=== PATIENT | female | born 1965 | race Caucasian/White ===

== ENCOUNTER 2017-12-08 23:35 | Inpatient (IN) | payer MEDICAID ==
[~2017-12-08] VITALS: Ht 160 cm; Wt 90.0 kg
[~2017-12-08 23:35] MED LIST: BAC10T PO; BACL10TA PO; DICL50TA6 PO; DOCU-28 PO; GABA-338 PO; GLAT20KI3 SQ; HYDR-3686 PO; IBUP-1986 PO; INSU100V36 SQ; LANTUS SQ; LOSA25TA96 PO; METF500T PO; MULT-785 PO; NITR100C6 PO; NORCO10T PO; SENN8.6C6 PO; SERT50TA PO; TOBR5DRO2 RIGHTEYE
[2017-12-09] MEDS ORDERED: normal saline 1000ML IV soln IVB ONE (00:30)
[2017-12-09 02:25] LABS: CLARITY,URINE SLIGHTLY CLOUDY (Clear); COLOR,URINE YELLOW (Yellow); GLUCOSE, URINE >=1000 mg/dl (Neg); KETONES,URINE NEGATIVE (Neg); LEUKOCYTE ESTERASE ,URINE NEGATIVE (Neg); NITRITES, URINE POSITIVE (Neg); OCCULT BLOOD,URINE SMALL (Neg); PROTEIN,URINE NEGATIVE (Neg); UROBILINOGEN,URINE 0.2 E.U/dL (0.2-1.0)
[2017-12-09 02:33] LABS: UA COLLECTION TYPE CLN CATCH MIDSTREAM
[2017-12-09 02:36] LABS: BASOPHILS % (AUTO) 0.3 % (0-1); EOSINOPHILS # (AUTO) 0.4 X10'3 (0-0.9); EOSINOPHILS % (AUTO) 3.4 % (0-6); HEMATOCRIT 34.5 % (35.0-45.0); HEMOGLOBIN 12.2 g/dl (12.0-16.0); LYMPHOCYTES # (AUTO) 1.8 X10'3 (1.1-4.8); LYMPHOCYTES % (AUTO) 14.9 % (21-51); MEAN CORPUSCULAR HEMOGLOBIN 31.6 PG (27.0-31.0); MEAN CORPUSCULAR HGB CONC 35.3 % (33.0-36.5); MEAN CORPUSCULAR VOLUME 89.4 FL (78-98); MONOCYTES # (AUTO) 0.5 X10'3 (0-0.9); MONOCYTES % (AUTO) 4.4 % (2-12); NEUTROPHILS # (AUTO) 9.3 X10'3 (1.8-7.7); PLATELET COUNT 254 X10'3 (140-440); RED BLOOD COUNT 3.86 X10'6 (4.20-5.60); RED CELL DISTRIBUTION WIDTH 12.9 % (11.5-14.5); WHITE BLOOD COUNT 12.1 X10'3 (4.5-11.0)
[2017-12-09 02:38] LABS: D-DIMER 0.95 MG/L FEU (0-0.50); PARTIAL THROMBOPLASTIN TIME 24 SECONDS (22-32)
[2017-12-09 02:42] LABS: BACTERIA,URINE 4+ /HPF (Neg); RBC,URINE 0-2 /HPF (0-2); SQUAMOUS EPITHELIAL CELL,UR MANY /LPF (FEW); WBC,URINE 0-4 /HPF (0-4)
[2017-12-09 03:05] LABS: ALANINE AMINOTRANSFERASE 26 U/L (12-78); ALBUMIN 3.5 G/DL (3.4-5.0); ALBUMIN/GLOBULIN RATIO 1.1 (1.1-1.5); ALKALINE PHOSPHATASE 133 IU/L (46-116); ANION GAP 10 (8-16); ASPARTATE AMINO TRANSFERASE 12 U/L (10-37); BILIRUBIN,TOTAL 0.3 MG/DL (0.1-1.0); BLOOD UREA NITROGEN 21 MG/DL (7-18); BUN/CREATININE RATIO 26.3 (6.6-38.0); CALCIUM 8.5 MG/DL (8.5-10.1); CHLORIDE 104 MMOL/L (99-107); CREATINE KINASE 56 U/L (26-192); GLUCOSE 342 MG/DL (70-104); MAGNESIUM 1.5 MG/DL (1.5-2.4); PHOSPHORUS 2.5 MG/DL (2.3-4.5); POTASSIUM 4.1 MMOL/L (3.5-5.1); SODIUM 141 MMOL/L (135-145); TOTAL PROTEIN 6.8 G/DL (6.4-8.2); eGFR 75 ML/MIN
[2017-12-09 03:38] LABS: ACETAMINOPHEN < 2.0 UG/ML (10-30)
[2017-12-09] MEDS ORDERED: iohexol 350MG/ML 100ml bottle IV ONE (03:40)
[2017-12-09 03:56] LABS: URINE AMPHETAMINE SCREEN NEGATIVE (Neg); URINE BARBITUATE SCREEN NEGATIVE (Neg); URINE BENZODIAZEPINES SCREEN NEGATIVE (Neg); URINE CANNABINOID SCREEN POSITIVE (Neg); URINE COCAINE SCREEN NEGATIVE (Neg); URINE METHADONE SCREEN NEGATIVE (Neg); URINE OPIATE SCREEN NEGATIVE (Neg); URINE PHENCYCLIDINE SCREEN NEGATIVE (Neg)
[2017-12-09 06:00] VITALS: BP 138/73
[2017-12-09] MEDS ORDERED: OXYB5TAB11 PO (08:38)
[2017-12-09] MEDS ORDERED: DIPH50CA3 PO (08:38)
[2017-12-09] MEDS ORDERED: VENL-191 PO (08:38)
[2017-12-09] MEDS ORDERED: LISI-600 PO (08:38)
[2017-12-09] MEDS ORDERED: MODA100T31 PO (08:38)
[2017-12-09] MEDS ORDERED: potassium Cl 20 mEq SR tablet PO PRN ×2 (09:25)
[2017-12-09] MEDS ORDERED: K and/or MAG REPLACEMENT MC SCH (09:25)
[2017-12-09] MEDS ORDERED: magnesium 2GM in 50ml NS 50 ML IV PRN (09:25)
[2017-12-09] MEDS ORDERED: acetaminophen 325mg tablet PO PRN ×2 (09:25)
[2017-12-09] MEDS ORDERED: magnesium Cl slow-release 64mg tablet PO PRN (09:25)
[2017-12-09] MEDS ORDERED: ondansetron/PF 4mg/2ml inj IV PRN (09:25)
[2017-12-09] MEDS ORDERED: magnesium 4gm in 100ml NS 100 ML IV PRN (09:25)
[2017-12-09] MEDS ORDERED: mag hydrox/Alum hydrox/simeth 30ml oral suspension PO PRN (09:25)
[2017-12-09] MEDS ORDERED: potassium Cl 40MEQ/NS 500ml 500 ML IV PRN ×2 (09:25)
[2017-12-09] MEDS ORDERED: magnesium hydroxide 30ml (MOM) UD suspension PO PRN (09:25)
[2017-12-09] MEDS ORDERED: MESSAGE TO NURSING PO NR (10:00)
[2017-12-09] MEDS ORDERED: CEFTRIAXONE IV ONE (11:17)
[2017-12-09] MEDS ORDERED: D5W ROCEPHIN IV ONE (11:17)
[2017-12-09] MEDS: normal saline 1000ml 1,000 ML IV SCH ×2 (11:42→19:25)
[2017-12-09] MEDS: cefTRIAXone 1g/NS 100ml IVPB 100 ML IV SCH (11:51)
[2017-12-09] MEDS: baclofen 10mg tablet PO SCH ×2 (13:54→22:30)
[2017-12-09] MEDS: gabapentin 300mg capsule PO SCH ×2 (13:54→22:30)
[2017-12-09 14:54] LABS: CLARITY,URINE CLEAR (Clear); COLOR,URINE YELLOW (Yellow); GLUCOSE, URINE 500 mg/dl (Neg); KETONES,URINE NEGATIVE (Neg); LEUKOCYTE ESTERASE ,URINE NEGATIVE (Neg); NITRITES, URINE POSITIVE (Neg); OCCULT BLOOD,URINE NEGATIVE (Neg); PROTEIN,URINE NEGATIVE (Neg); UROBILINOGEN,URINE 0.2 E.U/dL (0.2-1.0)
[2017-12-09 15:05] LABS: UA COLLECTION TYPE OTHER
[2017-12-09 15:06] LABS: BACTERIA,URINE 1+ /HPF (Neg); MUCUS STRANDS FEW /LPF (Neg); RBC,URINE NONE SEEN /HPF (0-2); SQUAMOUS EPITHELIAL CELL,UR NONE SEEN /LPF (FEW); WBC,URINE NONE SEEN /HPF (0-4)
[2017-12-09] MEDS ORDERED: dextrose 50%-water 50ml dispensing syringe IV PRN ×2 (18:55)
[2017-12-09] MEDS ORDERED: glucagon, human recombinant 1mg kit SUBCUT PRN (18:55)
[2017-12-09] MEDS ORDERED: MESSAGE TO PHARMACY PO ONE (18:55)
[2017-12-09] MEDS ORDERED: dextrose ORAL solution 15 GM/59 ML bottle PO PRN ×2 (18:55)
[2017-12-09 19:15] LABS: HEMOGLOBIN A1C 7.2 % (4.5-6.2)
[2017-12-09 19:35] VITALS: BP 141/89
[2017-12-09 20:00] VITALS: BP_SYST 138; BP_SYST 141; BP_SYST 144; BP_DIAS 112; BP_DIAS 82; BP_DIAS 89
[2017-12-09] MEDS ORDERED: diphenhydrAMINE 25mg capsule PO SCH (21:00)
[2017-12-09] MEDS ORDERED: temazepam 15mg capsule PO PRN (21:00)
[2017-12-09] MEDS ORDERED: insulin glargine (Lantus) pen - multi-dose SQ SCH ×2 (21:00)
[2017-12-09] MEDS: lactobacillus rhamnosus 10,000 MMU CELLS/CAPSULE PO SCH (22:45)
[2017-12-09] MEDS: oxybutynin 5mg tablet PO SCH (22:45)
[2017-12-09] MEDS: nystatin 15 GM powder TP SCH (22:46)
[2017-12-09] MEDS ORDERED: insulin Lispro (HumaLOG) vial - multi-dose SQ ONE (23:12)
[2017-12-10] VITALS: BP 136/63
[2017-12-10] MEDS: insulin Lispro (HumaLOG) vial - multi-dose SQ SCH ×2 (00:06→09:45)
[2017-12-10] MEDS: normal saline 1000ml 1,000 ML IV SCH (02:43)
[2017-12-10 05:35] LABS: BASOPHILS # (AUTO) 0.1 X10'3 (0-0.2); BASOPHILS % (AUTO) 0.8 % (0-1); EOSINOPHILS # (AUTO) 0.3 X10'3 (0-0.9); EOSINOPHILS % (AUTO) 4.2 % (0-6); HEMATOCRIT 31.5 % (35.0-45.0); HEMOGLOBIN 11.1 g/dl (12.0-16.0); LYMPHOCYTES # (AUTO) 2.9 X10'3 (1.1-4.8); LYMPHOCYTES % (AUTO) 38.1 % (21-51); MEAN CORPUSCULAR HEMOGLOBIN 30.9 PG (27.0-31.0); MEAN CORPUSCULAR HGB CONC 35.3 % (33.0-36.5); MEAN CORPUSCULAR VOLUME 87.4 FL (78-98); MEAN PLATELET VOLUME 8.8 FL (7.4-10.4); MONOCYTES # (AUTO) 0.5 X10'3 (0-0.9); MONOCYTES % (AUTO) 6.4 % (2-12); NEUTROPHILS # (AUTO) 3.9 X10'3 (1.8-7.7); NEUTROPHILS % (AUTO) 50.5 % (42-75); PLATELET COUNT 243 X10'3 (140-440); RED CELL DISTRIBUTION WIDTH 13.2 % (11.5-14.5); WHITE BLOOD COUNT 7.7 X10'3 (4.5-11.0)
[2017-12-10 06:20] LABS: ANION GAP 10 (8-16); BLOOD UREA NITROGEN 11 MG/DL (7-18); BUN/CREATININE RATIO 18.3 (6.6-38.0); CALCIUM 8.4 MG/DL (8.5-10.1); CHLORIDE 109 MMOL/L (99-107); CHOLESTEROL 154 MG/DL (0-200); GLUCOSE 314 MG/DL (70-104); HDL CHOLESTEROL 22 MG/DL (35-60); LDL CHOLESTEROL 95 MG/DL (50-100); MAGNESIUM 1.6 MG/DL (1.5-2.4); PHOSPHORUS 2.7 MG/DL (2.3-4.5); POTASSIUM 3.4 MMOL/L (3.5-5.1); SODIUM 145 MMOL/L (135-145); TOTAL CARBON DIOXIDE 26.2 MMOL/L (24-32); TRIGLYCERIDES 308 MG/DL (20-135); eGFR > 90 ML/MIN
[2017-12-10 07:00] VITALS: BP 141/82
[2017-12-10] MEDS ORDERED: modafinil 100mg tablet PO SCH (08:00)
[2017-12-10] MEDS: baclofen 10mg tablet PO SCH (08:00)
[2017-12-10] MEDS ORDERED: venlafaxine 37.5mg tablet PO SCH (08:00)
[2017-12-10] MEDS ORDERED: lisinopril 5mg tablet PO SCH (08:00)
[2017-12-10] MEDS ORDERED: enoxaparin 40mg/0.4ml syringe SQ SCH (08:00)
[2017-12-10] MEDS: lactobacillus rhamnosus 10,000 MMU CELLS/CAPSULE PO SCH (08:59)
[2017-12-10] MEDS: gabapentin 300mg capsule PO SCH (08:59)
[2017-12-10] MEDS: oxybutynin 5mg tablet PO SCH (08:59)
[2017-12-10] MEDS: nystatin 15 GM powder TP SCH (09:02)
[2017-12-10] MEDS: cefTRIAXone 1g/NS 100ml IVPB 100 ML IV SCH (09:45)
[2017-12-10] MEDS ORDERED: CefTRIAXone/D5W-Rocephin 1gm 50 ML IV SCH (11:55)
== END 2017-12-10 13:50 | disposition home or self-care (01) | DRG 204 ==
LOC: ER 23:35 → ED HOLD 12-09 09:25 → EDBEDREQ 12-09 15:37 → EDBEDREQTM 12-09 15:37 → SUR 3N 12-09 16:49
PROVIDERS: ADMIT Family Medicine; ATTEND Family Medicine
PROC: B2261ZZ Computerized Tomography (CT Scan) of Right and Left Heart using Low Osmolar Contrast (ICD-10-PCS; principal; 2017-12-09)
DX: R55 Syncope and collapse (principal); E11.42 Type 2 diabetes mellitus with diabetic polyneuropathy; E86.0 Dehydration; E11.65 Type 2 diabetes mellitus with hyperglycemia; E66.9 Obesity, unspecified; E87.6 Hypokalemia; F20.9 Schizophrenia, unspecified; G35 Multiple sclerosis; I10 Essential (primary) hypertension; N39.498 Other specified urinary incontinence; R79.89 Other specified abnormal findings of blood chemistry; L68.0 Hirsutism; Z68.35 Body mass index [BMI] 35.0-35.9, adult; Z88.1 Allergy status to other antibiotic agents; Z87.440 Personal history of urinary (tract) infections; Z88.0 Allergy status to penicillin; Z72.89 Other problems related to lifestyle
CPT/HCPCS: 36415; 70450; 71045; 71275; 80048; 80053; 80061; 80305; 80329; 81001; 82140; 82550; 82948; 83036; 83605; 83735; 84100; 84443; 84484; 85025; 85379; 85610; 85651; 85730; 87040; 87070; 87077; 87088; 87186; 93005; 93306; 93880; 99285; J0696; J1650; J1815; J7030; Q0163; Q9967

== ENCOUNTER 2018-11-23 19:01 | Emergency (ER) | payer MEDICAID ==
[~2018-11-23] VITALS: Ht 160 cm; Wt 81.8 kg
[~2018-11-23 19:01] MED LIST changes: -BACL10TA PO; -DICL50TA6 PO; +DIPH50CA3 PO; -DOCU-28 PO; -GLAT20KI3 SQ; -HYDR-3686 PO; +LISI-600 PO; -LOSA25TA96 PO; +MODA100T31 PO; -NORCO10T PO; +OXYB5TAB11 PO; -SENN8.6C6 PO; -SERT50TA PO; -TOBR5DRO2 RIGHTEYE; +VENL-191 PO
[2018-11-23 19:07] VITALS: BP 117/75
[2018-11-23] MEDS ORDERED: CIPR-259 PO (21:49)
[2018-11-23] MEDS ORDERED: CefTRIAXone 1000mg IM Kit (w/lidocaine diluent) IM ONE (21:50)
== END 2018-11-23 22:21 | disposition home or self-care (01) ==
LOC: ER 19:02
DX: N39.0 Urinary tract infection, site not specified (principal); G35 Multiple sclerosis; I10 Essential (primary) hypertension; J45.909 Unspecified asthma, uncomplicated; E11.42 Type 2 diabetes mellitus with diabetic polyneuropathy; Z98.890 Other specified postprocedural states; Z56.0 Unemployment, unspecified; Z88.1 Allergy status to other antibiotic agents; Z88.0 Allergy status to penicillin; Z79.899 Other long term (current) drug therapy; Z79.4 Long term (current) use of insulin
CPT/HCPCS: 96372; 99284; J0696

== ENCOUNTER 2018-12-23 15:33 | Emergency (ER) | payer MEDICAID ==
[~2018-12-23] VITALS: Ht 172.7 cm; Wt 68.2 kg
[2018-12-23 15:42] VITALS: BP 132/73
--- NOTE | 2018-12-23 16:13 | NUR ---
DRE PT'S DAUGHTER
[2018-12-23 16:35] LABS: BASOPHILS # (AUTO) 0.1 X10'3 (0-0.2); BASOPHILS % (AUTO) 0.7 % (0-1); EOSINOPHILS # (AUTO) 0.2 X10'3 (0-0.9); EOSINOPHILS % (AUTO) 2.6 % (0-6); HEMATOCRIT 44.4 % (35.0-45.0); HEMOGLOBIN 15.2 g/dl (12.0-16.0); LYMPHOCYTES # (AUTO) 2.8 X10'3 (1.1-4.8); LYMPHOCYTES % (AUTO) 37.5 % (21-51); MEAN CORPUSCULAR HEMOGLOBIN 30.5 PG (27.0-31.0); MEAN CORPUSCULAR HGB CONC 34.3 g/dL (33.0-36.5); MEAN CORPUSCULAR VOLUME 89.1 FL (78-98); MEAN PLATELET VOLUME 7.8 FL (7.4-10.4); MONOCYTES # (AUTO) 0.5 X10'3 (0-0.9); MONOCYTES % (AUTO) 6.1 % (2-12); NEUTROPHILS # (AUTO) 3.9 X10'3 (1.8-7.7); NEUTROPHILS % (AUTO) 53.1 % (42-75); PLATELET COUNT 385 X10'3 (140-440); RED BLOOD COUNT 4.98 X10'6 (4.20-5.60); RED CELL DISTRIBUTION WIDTH 12.9 % (11.5-14.5); WHITE BLOOD COUNT 7.4 X10'3 (4.5-11.0)
[2018-12-23 16:57] LABS: ALANINE AMINOTRANSFERASE 16 U/L (12-78); ALBUMIN 4.3 G/DL (3.4-5.0); ALKALINE PHOSPHATASE 164 IU/L (46-116); ANION GAP 11 (8-16); ASPARTATE AMINO TRANSFERASE 12 U/L (10-37); BILIRUBIN,TOTAL 0.7 MG/DL (0.1-1.0); BLOOD UREA NITROGEN 12 MG/DL (7-18); BUN/CREATININE RATIO 21.1 (6.6-38.0); CHLORIDE 99 MMOL/L (99-107); CREATININE 0.57 MG/DL (0.40-0.90); GLUCOSE 92 MG/DL (70-104); POTASSIUM 3.2 MMOL/L (3.5-5.1); SODIUM 140 MMOL/L (135-145); TOTAL CARBON DIOXIDE 29.7 MMOL/L (24-32); TOTAL PROTEIN 8.4 G/DL (6.4-8.2); eGFR > 90 ML/MIN
== END 2018-12-23 17:41 | disposition home or self-care (01) ==
LOC: ER 15:33
DX: R42 Dizziness and giddiness (principal); E11.42 Type 2 diabetes mellitus with diabetic polyneuropathy; I10 Essential (primary) hypertension; J45.909 Unspecified asthma, uncomplicated; Z88.1 Allergy status to other antibiotic agents; Z88.0 Allergy status to penicillin; Z79.4 Long term (current) use of insulin; Z79.84 Long term (current) use of oral hypoglycemic drugs; Z79.899 Other long term (current) drug therapy; Z98.890 Other specified postprocedural states; Z56.0 Unemployment, unspecified
CPT/HCPCS: 36415; 80053; 85025; 93005; 99284

== ENCOUNTER 2023-08-19 14:51 | Emergency (ER) | payer MEDICAID ==
[~2023-08-19] VITALS: Ht 152.4 cm; Wt 63.6 kg
[~2023-08-19 14:51] MED LIST changes: -DIPH50CA3 PO; +DIPH50CA40 PO; -LISI-600 PO; +LISI20TA28 PO; -OXYB5TAB11 PO; +OXYB5TAB16 PO
[2023-08-19 15:40] VITALS: BP 125/76; PULSE 78; RESP 16; TEMP 97; O2SAT 99
[2023-08-19] MEDS ORDERED: acetaminophen 325mg tablet PO ONE (16:15)
[2023-08-19] MEDS ORDERED: bacitracin 15gm ointment TP ONE (17:05)
[2023-08-19] MEDS ORDERED: TETanus/Pertussis (Acell)/Diphther VAC/PF (Tdap-Adult) 0.5ml syringe IMVAC ONE (17:05)
[2023-08-19 18:17] LABS: URINE AMPHETAMINE SCREEN NEGATIVE (Neg); URINE BARBITUATE SCREEN NEGATIVE (Neg); URINE BENZODIAZEPINES SCREEN NEGATIVE (Neg); URINE CANNABINOID SCREEN POSITIVE (Neg); URINE COCAINE SCREEN NEGATIVE (Neg); URINE METHADONE SCREEN NEGATIVE (Neg); URINE OPIATE SCREEN NEGATIVE (Neg); URINE PHENCYCLIDINE SCREEN NEGATIVE (Neg)
== END 2023-08-19 18:49 | disposition home or self-care (01) ==
LOC: ER 14:51
DX: S00.83XA Contusion of other part of head, initial encounter (principal); X58.XXXA Exposure to other specified factors, initial encounter; Y93.89 Activity, other specified; Y92.89 Other specified places as the place of occurrence of the external cause; Y99.8 Other external cause status; I10 Essential (primary) hypertension; J45.909 Unspecified asthma, uncomplicated; E11.9 Type 2 diabetes mellitus without complications; F20.9 Schizophrenia, unspecified; Z79.899 Other long term (current) drug therapy
CPT/HCPCS: 70450; 80305; 90471; 90715; 99285